=== PATIENT | male | born 1985 | race Caucasian/White ===

== ENCOUNTER 2021-12-07 07:10 | Inpatient (IN) | payer OTHER ==
[~2021-12-07] VITALS: Ht 177.8 cm; Wt 113.5 kg
[~2021-12-07 07:10] MED LIST: Amoxicillin500 MG PO; HYDACE7.5L PO; IBUP800 PO; [UNRECOGNIZED DRUG - OTHER]
[2021-12-07 07:28] LABS: BASOPHILS ABSOLUTE AUTO 0.04 K/mm3 (0.00-0.23); BASOPHILS PERCENT AUTO 0 % (0-2); EOSINOPHILS ABSOLUTE AUTO 0.22 K/mm3 (0.00-0.68); EOSINOPHILS PERCENT AUTO 2 % (0-6); Hematocrit 47.4 % (37.0-53.0); Hemoglobin 15.6 g/dL (13.5-17.5); IMMATURE GRAN ABSOLUTE AUTO 0.06 K/mm3 (0.00-0.10); IMMATURE GRAN PERCENT AUTO 1 % (0-1); LYMPHOCYTES PERCENT AUTO 29 % (21-46); MONOCYTES ABSOLUTE AUTO 1.17 K/mm3 (0.16-1.47); MONOCYTES PERCENT AUTO 9 % (4-13); Mean Corpuscular HGB 27.2 pg (26.0-34.0); Mean Corpuscular HGB Conc 32.9 g/dL (31.5-36.5); Mean Corpuscular Volume 83 fL (80-100); Mean Platelet Volume 11.1 fL (9.1-12.4); NEUTROPHILS ABSOLUTE AUTO 7.91 K/mm3 (1.96-9.15); NEUTROPHILS PERCENT AUTO 59 % (41-73); Platelet Count 313 K/mm3 (150-400); RDW Coefficient Variation 13.2 % (11.7-14.2); RDW Standard Deviation 40.1 fL (35.1-46.3); Red Blood Cell Count 5.73 M/mm3 (4.30-5.90)
[2021-12-07 07:30] LABS: Calcium, Ionized (POC) 1.19 mmol/L (1.10-1.46); Chloride (POC) 105 mmol/L (98-108); Creatinine (POC) 0.8 mg/dL (0.8-1.3); Glucose (ISTAT POC) 132 mg/dL (70-99); Hemoglobin (POC) 16.7 g/dL (13.5-17.5); Potassium (POC) 3.3 mmol/L (3.5-5.5); Sodium (POC) 143 mmol/L (135-148); Total CO2 (POC) 23 mmol/L (21-32)
[2021-12-07 07:48] LABS: Alanine Aminotransfer (ALT/SGP 30 U/L (12-78); Albumin, Blood 3.9 g/dL (3.4-5.0); Albumin/Globulin Ratio 1.2 (0.8-1.8); Alk Phos 79 U/L (50-136); Anion Gap 9 mmol/L (6-16); Aspartate Aminotrans (AST/SGOT 18 U/L (12-37); Bilirubin, Total 0.4 mg/dL (0.1-1.0); Blood Urea Nitrogen 17 mg/dL (8-24); Bun/Creatinine Ratio 20.3 (12.0-20.0); CHOL/HDL RATIO 6.5; CO2, Blood 25 mmol/L (21-32); Calcium, Blood 9.2 mg/dL (8.5-10.1); Chloride, Blood 109 mmol/L (98-108); Cholesterol 188 mg/dL (50-200); Creatinine, Blood 0.84 mg/dL (0.60-1.20); Globulin, Blood 3.3 g/dL (2.2-4.0); Glomerular Filtration Rate 117 (60-); Glucose, Blood 135 mg/dL (70-99); HDL Cholesterol 29 mg/dL (>39); LDL/HDL RATIO 4.6; Low Density Lipoprotein Chol 133 mg/dL (0-110); Potassium, Blood 3.3 mmol/L (3.5-5.5); Sodium, Blood 143 mmol/L (136-145); Total Protein, Blood 7.2 g/dL (6.4-8.2); Triglycerides 130 mg/dL (30-140); Very Low Density Lipoprot Chol 26 mg/dL (6-28)
[2021-12-07 07:51] LABS: Anti-Xa UFH, PHA Monitoring <0.10 IU/mL; International Normalized Ratio 1.22; Prothrombin Time Results 12.6 Sec (9.7-11.5)
--- NOTE | 2021-12-07 09:17 | NUR ---
ADMISSION: Pt arrived to ICU from [facility]
--- NOTE | 2021-12-07 09:57 | NUR ---
PROVIDER PHONE CALL: This RN called Dr Watkins and updated him on pt case for consult.
[2021-12-07 10:35] LABS: Bun/Creatinine Ratio 22.5 (12.0-20.0); Calcium, Blood 8.2 mg/dL (8.5-10.1); Creatinine, Blood 0.67 mg/dL (0.60-1.20); Potassium, Blood 3.7 mmol/L (3.5-5.5)
--- NOTE | 2021-12-07 14:29 | NUR ---
TR BAND REMOVAL: TR band deflated and removed without any rebleeding. Site dressed with occlusive dressing.
--- NOTE | 2021-12-07 15:26 | NUR ---
PHONE CALL: Dr Martinez called and notified that RN canceled heparin order as it was never started.
--- NOTE | 2021-12-07 17:09 | NUR ---
SHIFT SUMMARY/TRANSFER: Pt admitted to ICU from [facility] this morning. He denies any chest pain, shortness of breath, or dizziness. 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 His mother and grandmother were given stent card and personal belongings. Pt ambulated around unit without difficulty. Pt was taken to PCU via hospital bed by RN on cardiac monitoring.
--- NOTE | 2021-12-07 17:34 | NUR ---
ADMIT NOTE TO PCU PATIENT ARRIVED FROM ICU 2 TO PCU 2 AT APPROXIMATELY 1720. PATIENT IS A&OX4, PLEASANT, AND COOPERATIVE W CARE. PATIENT DENIES CP/PRESSURE, SOB, N/V, NUMBNESS/TINGLING. TELE NSR 70S, SPO2>90% RA, VSS. R RADIAL SITE CLEAR WITH NO PRESENCE OF EDEMA, TENDERNESS, REDNESS, BLEEDING, ETC. REVIEWED AND AGREE WITH THE PREVIOUS RN'S ASSESSMENT. LS CLEAR T/O B/L. IV SITE AT LFA PATENT. PATIENT IS INDEPENDENT. REGULAR DIET.
--- NOTE | 2021-12-07 18:26 | NUR ---
I have reveiwed the nursting students documentation and am in agreement.
[2021-12-07 18:55] LABS: U Amphetamine Screen Not Detected; U Barbituate Screen Not Detected; U Benzodiazapine Screen Not Detected; U Buprenorphine Screen Not Detected; U Cannabinoids Screen Not Detected; U Cocaine Screen Not Detected; U Methadone Screen Not Detected; U Methamphetamine Screen Not Detected; U Opiates Screen Not Detected; U Oxycodone Screen Not Detected; U Phencyclidine Screen Not Detected; U Propoxyphene Screen Not Detected
[2021-12-08 04:10] LABS: BASOPHILS ABSOLUTE AUTO 0.03 K/mm3 (0.00-0.23); BASOPHILS PERCENT AUTO 0 % (0-2); EOSINOPHILS ABSOLUTE AUTO 0.09 K/mm3 (0.00-0.68); EOSINOPHILS PERCENT AUTO 1 % (0-6); Hemoglobin 14.6 g/dL (13.5-17.5); IMMATURE GRAN ABSOLUTE AUTO 0.06 K/mm3 (0.00-0.10); IMMATURE GRAN PERCENT AUTO 1 % (0-1); LYMPHOCYTES PERCENT AUTO 17 % (21-46); MONOCYTES ABSOLUTE AUTO 1.12 K/mm3 (0.16-1.47); MONOCYTES PERCENT AUTO 9 % (4-13); Mean Corpuscular HGB 26.8 pg (26.0-34.0); Mean Corpuscular HGB Conc 31.7 g/dL (31.5-36.5); Mean Corpuscular Volume 84 fL (80-100); Mean Platelet Volume 11.2 fL (9.1-12.4); NEUTROPHILS PERCENT AUTO 73 % (41-73); Platelet Count 254 K/mm3 (150-400); RDW Coefficient Variation 13.6 % (11.7-14.2); RDW Standard Deviation 41.6 fL (35.1-46.3); Red Blood Cell Count 5.45 M/mm3 (4.30-5.90)
[2021-12-08 04:42] LABS: Albumin, Blood 3.6 g/dL (3.4-5.0); Albumin/Globulin Ratio 1.2 (0.8-1.8); Bilirubin, Total 0.5 mg/dL (0.1-1.0); Bun/Creatinine Ratio 17.8 (12.0-20.0); Calcium, Blood 8.8 mg/dL (8.5-10.1); Creatinine, Blood 0.62 mg/dL (0.60-1.20); Globulin, Blood 3.1 g/dL (2.2-4.0); Potassium, Blood 3.8 mmol/L (3.5-5.5); Total Protein, Blood 6.7 g/dL (6.4-8.2)
--- NOTE | 2021-12-08 05:40 | NUR ---
SHIFT SUMMARY PT ALERT AND ORIENTED, BUT HAS SLEPT AND RESTED MOST OF THE SHIFT. VSS; SR W/HR IN 70'S - 80'S. 02 >94% ON RA. PT DENIES CHEST PAIN OR CHEST PRESSURE. DENIES SOB. NO TENDERNESS, REDNESS, OR SWELLING NOTED ON R. RADIAL SITE. PT USING RESTROOM INDEPENDENTLY. NO ACUTE CHANGES. BED IN LOWEST POSITION AND CALL LIGHT WITHIN REACH.
--- NOTE | 2021-12-08 09:44 | NUR ---
AM NOTE PATIENT IS PLEASANT, COOPERATIVE W CARE, AND A&OX4. TELE NSR 70S, SPO2>90% RA, VSS. PATIENT DENIES CP/PRESSURE, SOB, N/V, NUMBNESS/TINGLING. PATIENT IS INDEPENDENT. PATIENT DOES C/O OF HEADACHE ASSOSIATED WITH NICOTINE WITHDRAWALS, HOWEVER, DENIES RX INTERVENTIONS. R RADIAL SITE IS INTACT, REMAINS FREE OF HEMATOMA, EDEMA, TENDERNESS, ETC.
[2021-12-08] MEDS ORDERED: ASPI81CH PO (16:38)
[2021-12-08] MEDS ORDERED: ATOR40TA PO (16:39)
[2021-12-08] MEDS ORDERED: METO25ER PO (16:40)
[2021-12-08] MEDS ORDERED: CLOP75 PO (16:41)
--- NOTE | 2021-12-08 18:19 | NUR ---
Discharge Summary Pt alert, oriented X4; anxious, expresses the desire to go home this am. Pt denies pain, chest pain, sob, [place], dizziness/lightheadedness, numb/tingling t/o shift. Tele sinus, run of [facility], notified Dr Barber, no new orders. BP stable. Right radial site c/d/i, arm board in place t/o shift. Spo2 >90% on ra, ls clear t/o. Abd soft nontender, pt reports bm yesterday, normoactive bt t/o. Pt up ind in room, went for walk with executive personal assistant this afternoon. Other vss. No other acute changes noted. at bedside this evening, discussed insurance and medications cost with provider, new orders entered. Reveiwed nursing students documentation and am in agreement. Pt and mother educated on discharge instructions, follow up appointment and prescriptions. Faxed medications to [facility], patient acknowledges the importance of picking medciation up tomorrow am and taking them daily. Educated pt on smoking cessation. Educated pt on wound care and activity restrictions. Pt left room via wheelchair.
== END 2021-12-08 17:56 | disposition home or self-care (01) | DRG 247 ==
LOC: ER 07:10 → PCU 07:17 → ICUE 07:17 → ICUW 07:17 → ICUE 07:39 → PCU 17:15
PROVIDERS: Student in an Organized Health Care Education/Training Program; ADMIT Internal Medicine Cardiovascular Disease
PROC: 027034Z Dilation of Coronary Artery, One Artery with Drug-eluting Intraluminal Device, Percutaneous Approach (ICD-10-PCS; principal; 2021-12-07)
PROC: 4A023N7 Measurement of Cardiac Sampling and Pressure, Left Heart, Percutaneous Approach (ICD-10-PCS; 2021-12-07)
PROC: B2111ZZ Fluoroscopy of Multiple Coronary Arteries using Low Osmolar Contrast (ICD-10-PCS; 2021-12-07)
DX: I21.19 ST elevation (STEMI) myocardial infarction involving other coronary artery of inferior wall (principal); F17.210 Nicotine dependence, cigarettes, uncomplicated; E87.6 Hypokalemia; F15.11 Other stimulant abuse, in remission; Z71.6 Tobacco abuse counseling
CPT/HCPCS: 36415; 71045; 76937; 80047; 80048; 80053; 80061; 83735; 84484; 85014; 85025; 85347; 85520; 85610; 86850; 86900; 86901; 93005; 93010; 93306; 93458; 96365; 96375; 99152; 99153; 99285-25; A9270; C1725; C1769; C1874; C1887; C1894; C9600; J0461; J1644; J2250; J2370; J3010; J3480; J7030; J7040; Q9967

== ENCOUNTER 2022-02-22 13:50 | Emergency (ER) | payer OTHER ==
[~2022-02-22] VITALS: Ht 175.3 cm; Wt 113.4 kg
[~2022-02-22 13:50] MED LIST changes: +ASPI81CH PO; +ATOR40TA PO; +CLOP75 PO; +METO25ER PO
[2022-02-22 14:59] LABS: Albumin, Blood 4.1 g/dL (3.4-5.0); Albumin/Globulin Ratio 1.2 (0.8-1.8); Bilirubin, Total 0.2 mg/dL (0.1-1.0); Bun/Creatinine Ratio 14.9 (12.0-20.0); Calcium, Blood 9.8 mg/dL (8.5-10.1); Creatinine, Blood 0.67 mg/dL (0.60-1.20); Globulin, Blood 3.4 g/dL (2.2-4.0); Potassium, Blood 3.9 mmol/L (3.5-5.5); Total Protein, Blood 7.5 g/dL (6.4-8.2)
[2022-02-22 16:53] LABS: BASOPHILS ABSOLUTE AUTO 0.03 K/mm3 (0.00-0.23); BASOPHILS PERCENT AUTO 0 % (0-2); EOSINOPHILS PERCENT AUTO 1 % (0-6); Hematocrit 45.3 % (37.0-53.0); Hemoglobin 14.9 g/dL (13.5-17.5); IMMATURE GRAN ABSOLUTE AUTO 0.04 K/mm3 (0.00-0.10); IMMATURE GRAN PERCENT AUTO 0 % (0-1); LYMPHOCYTES ABSOLUTE AUTO 2.23 K/mm3 (0.84-5.20); LYMPHOCYTES PERCENT AUTO 18 % (21-46); MONOCYTES ABSOLUTE AUTO 0.52 K/mm3 (0.16-1.47); MONOCYTES PERCENT AUTO 4 % (4-13); Mean Corpuscular HGB 27.2 pg (26.0-34.0); Mean Corpuscular HGB Conc 32.9 g/dL (31.5-36.5); Mean Corpuscular Volume 83 fL (80-100); Mean Platelet Volume 10.5 fL (9.1-12.4); NEUTROPHILS ABSOLUTE AUTO 9.64 K/mm3 (1.96-9.15); NEUTROPHILS PERCENT AUTO 77 % (41-73); Platelet Count 273 K/mm3 (150-400); RDW Standard Deviation 39.3 fL (35.1-46.3); Red Blood Cell Count 5.48 M/mm3 (4.30-5.90); White Blood Cell Count 12.56 K/mm3 (4.00-11.30)
== END 2022-02-22 17:56 | disposition home or self-care (01) ==
LOC: ER 13:50
PROVIDERS: Student in an Organized Health Care Education/Training Program
DX: R42 Dizziness and giddiness (principal); I25.2 Old myocardial infarction; F17.210 Nicotine dependence, cigarettes, uncomplicated; Z79.82 Long term (current) use of aspirin; Z79.899 Other long term (current) drug therapy
CPT/HCPCS: 80053; 83880; 84484; 85025; 93005; 93010

== ENCOUNTER 2023-02-04 13:06 | Emergency (ER) | payer OTHER ==
[~2023-02-04] VITALS: Ht 177.8 cm; Wt 102.1 kg
[2023-02-04 13:47] LABS: BASOPHILS ABSOLUTE AUTO 0.03 K/mm3 (0.00-0.23); BASOPHILS PERCENT AUTO 0 % (0-2); EOSINOPHILS ABSOLUTE AUTO 0.07 K/mm3 (0.00-0.68); EOSINOPHILS PERCENT AUTO 1 % (0-6); Hematocrit 47.1 % (37.0-53.0); Hemoglobin 15.4 g/dL (13.5-17.5); IMMATURE GRAN ABSOLUTE AUTO 0.02 K/mm3 (0.00-0.10); IMMATURE GRAN PERCENT AUTO 0 % (0-1); LYMPHOCYTES ABSOLUTE AUTO 1.54 K/mm3 (0.84-5.20); LYMPHOCYTES PERCENT AUTO 22 % (21-46); MONOCYTES ABSOLUTE AUTO 0.57 K/mm3 (0.16-1.47); MONOCYTES PERCENT AUTO 8 % (4-13); Mean Corpuscular HGB 26.3 pg (26.0-34.0); Mean Corpuscular HGB Conc 32.7 g/dL (31.5-36.5); Mean Corpuscular Volume 81 fL (80-100); Mean Platelet Volume 10.8 fL (9.1-12.4); NEUTROPHILS ABSOLUTE AUTO 4.93 K/mm3 (1.96-9.15); NEUTROPHILS PERCENT AUTO 69 % (41-73); Platelet Count 256 K/mm3 (150-400); RDW Standard Deviation 37.7 fL (35.1-46.3); Red Blood Cell Count 5.85 M/mm3 (4.30-5.90); White Blood Cell Count 7.16 K/mm3 (4.00-11.30)
[2023-02-04 13:56] LABS: International Normalized Ratio 1.25
[2023-02-04 14:02] LABS: Albumin, Blood 4.2 g/dL (3.4-5.0); Albumin/Globulin Ratio 1.2 (0.8-1.8); Bilirubin, Total 0.6 mg/dL (0.1-1.0); Bun/Creatinine Ratio 16.5 (12.0-20.0); Calcium, Blood 9.5 mg/dL (8.5-10.1); Creatinine, Blood 0.79 mg/dL (0.60-1.20); Globulin, Blood 3.6 g/dL (2.2-4.0); Potassium, Blood 3.9 mmol/L (3.5-5.5); Total Protein, Blood 7.8 g/dL (6.4-8.2)
[2023-02-04 16:30] VITALS: BP 127/85
== END 2023-02-04 16:55 | disposition home or self-care (01) ==
LOC: ER 13:06
PROVIDERS: Podiatrist Foot & Ankle Surgery
DX: M54.6 Pain in thoracic spine (principal); R07.89 Other chest pain; I25.2 Old myocardial infarction; F17.210 Nicotine dependence, cigarettes, uncomplicated; Z79.82 Long term (current) use of aspirin; Z79.02 Long term (current) use of antithrombotics/antiplatelets; Z79.899 Other long term (current) drug therapy
CPT/HCPCS: 71046; 80053; 83880; 84484; 85025; 85610; 93005; 93010; 99285-25

== ENCOUNTER 2023-08-04 18:53 | Emergency (ER) | payer OTHER ==
[~2023-08-04] VITALS: Ht 177.8 cm; Wt 86.2 kg
[2023-08-04 19:49] LABS: BASOPHILS ABSOLUTE AUTO 0.04 K/mm3 (0.00-0.23); BASOPHILS PERCENT AUTO 1 % (0-2); EOSINOPHILS ABSOLUTE AUTO 0.11 K/mm3 (0.00-0.68); EOSINOPHILS PERCENT AUTO 1 % (0-6); Hematocrit 43.9 % (37.0-53.0); IMMATURE GRAN ABSOLUTE AUTO 0.01 K/mm3 (0.00-0.10); IMMATURE GRAN PERCENT AUTO 0 % (0-1); LYMPHOCYTES PERCENT AUTO 28 % (21-46); MONOCYTES ABSOLUTE AUTO 0.63 K/mm3 (0.16-1.47); MONOCYTES PERCENT AUTO 8 % (4-13); Mean Corpuscular HGB 26.2 pg (26.0-34.0); Mean Corpuscular HGB Conc 31.9 g/dL (31.5-36.5); Mean Corpuscular Volume 82 fL (80-100); Mean Platelet Volume 10.6 fL (9.1-12.4); NEUTROPHILS ABSOLUTE AUTO 5.12 K/mm3 (1.96-9.15); NEUTROPHILS PERCENT AUTO 62 % (41-73); Platelet Count 246 K/mm3 (150-400); RDW Standard Deviation 38.7 fL (35.1-46.3); Red Blood Cell Count 5.34 M/mm3 (4.30-5.90); White Blood Cell Count 8.21 K/mm3 (4.00-11.30)
[2023-08-04 20:15] LABS: Albumin, Blood 4.3 g/dL (3.4-5.0); Albumin/Globulin Ratio 1.3 (0.8-1.8); Bilirubin, Total 0.3 mg/dL (0.1-1.0); Bun/Creatinine Ratio 19.2 (12.0-20.0); Calcium, Blood 9.6 mg/dL (8.5-10.1); Creatinine, Blood 0.83 mg/dL (0.60-1.20); Globulin, Blood 3.4 g/dL (2.2-4.0); Potassium, Blood 4.1 mmol/L (3.5-5.5); Total Protein, Blood 7.7 g/dL (6.4-8.2)
[2023-08-04 21:02] VITALS: BP 126/78
== END 2023-08-04 22:05 | disposition home or self-care (01) ==
LOC: ER 18:53
PROVIDERS: Emergency Medicine
DX: R07.9 Chest pain, unspecified (principal); M62.838 Other muscle spasm; I25.2 Old myocardial infarction; F17.210 Nicotine dependence, cigarettes, uncomplicated; Z79.82 Long term (current) use of aspirin; Z79.899 Other long term (current) drug therapy; Z95.5 Presence of coronary angioplasty implant and graft
CPT/HCPCS: 71045; 80053; 84484; 85025; 93005; 93010; 99285-25

== ENCOUNTER 2024-09-21 13:17 | Emergency (ER) | payer OTHER ==
[~2024-09-21] VITALS: Ht 177.8 cm; Wt 102.1 kg
[2024-09-21 13:59] LABS: BASOPHILS ABSOLUTE AUTO 0.04 K/mm3 (0.00-0.23); BASOPHILS PERCENT AUTO 1 % (0-2); EOSINOPHILS ABSOLUTE AUTO 0.06 K/mm3 (0.00-0.68); EOSINOPHILS PERCENT AUTO 1 % (0-6); Hematocrit 43.5 % (37.0-53.0); Hemoglobin 13.9 g/dL (13.5-17.5); IMMATURE GRAN ABSOLUTE AUTO 0.02 K/mm3 (0.00-0.10); IMMATURE GRAN PERCENT AUTO 0 % (0-1); LYMPHOCYTES ABSOLUTE AUTO 2.05 K/mm3 (0.84-5.20); LYMPHOCYTES PERCENT AUTO 33 % (21-46); MONOCYTES ABSOLUTE AUTO 0.48 K/mm3 (0.16-1.47); MONOCYTES PERCENT AUTO 8 % (4-13); Mean Corpuscular HGB 26.8 pg (26.0-34.0); Mean Corpuscular Volume 84 fL (80-100); Mean Platelet Volume 10.3 fL (9.1-12.4); NEUTROPHILS ABSOLUTE AUTO 3.61 K/mm3 (1.96-9.15); NEUTROPHILS PERCENT AUTO 58 % (41-73); Platelet Count 235 K/mm3 (150-400); RDW Coefficient Variation 12.7 % (11.7-14.2); RDW Standard Deviation 38.6 fL (35.1-46.3); Red Blood Cell Count 5.19 M/mm3 (4.30-5.90); White Blood Cell Count 6.26 K/mm3 (4.00-11.30)
[2024-09-21 14:22] LABS: Albumin, Blood 4.2 g/dL (3.4-5.0); Albumin/Globulin Ratio 1.2 (0.8-1.8); Bilirubin, Total 0.6 mg/dL (0.1-1.0); Bun/Creatinine Ratio 16.5 (12.0-20.0); Creatinine, Blood 0.85 mg/dL (0.60-1.20); Globulin, Blood 3.5 g/dL (2.2-4.0); Potassium, Blood 3.8 mmol/L (3.5-5.5); Total Protein, Blood 7.7 g/dL (6.4-8.2)
[2024-09-21 17:00] VITALS: BP 123/78
== END 2024-09-21 17:15 | disposition home or self-care (01) ==
LOC: ER 13:17
PROVIDERS: Student in an Organized Health Care Education/Training Program
DX: R07.9 Chest pain, unspecified (principal); F17.210 Nicotine dependence, cigarettes, uncomplicated; E78.5 Hyperlipidemia, unspecified; Z79.82 Long term (current) use of aspirin; Z79.02 Long term (current) use of antithrombotics/antiplatelets; Z79.899 Other long term (current) drug therapy
CPT/HCPCS: 71046; 80053; 84484; 85025; 93005; 93010; 99285-25

== ENCOUNTER 2025-06-25 10:11 | Day surgery (SDC) | payer OTHER ==
[~2025-06-25] VITALS: Ht 177.8 cm; Wt 105.0 kg
[2025-06-25 10:33] VITALS: BP 134/89
[2025-06-25] MEDS ORDERED: ESCITALOPRAM OX10 M1 PO (10:33)
[2025-06-25] MEDS ORDERED: Heparin Sodium 1000 Units/ML 10ML MDV ONE ×2 (11:14→12:27)
[2025-06-25] MEDS ORDERED: NS 1,000 ML IV ONE ×2 (11:14→11:20)
[2025-06-25] MEDS ORDERED: Verapamil HCL 2.5 MG/ML 2ML Injection ONE (11:14)
[2025-06-25] MEDS ORDERED: NS 250 ML IV ONE (11:14)
[2025-06-25] MEDS ORDERED: Nitroglycerin 2 MG/20 ML BTL ONE (11:15)
[2025-06-25] MEDS ORDERED: FentaNYL Citrate 50 MCG/ML 2 ML Injection ONE ×2 (11:20→12:37)
[2025-06-25] MEDS ORDERED: Midazolam HCl 1MG / ML 2ML Vial ONE ×2 (11:20→12:37)
[2025-06-25 13:11] VITALS: BP 109/91
[2025-06-25 14:15] VITALS: BP 131/78
[2025-06-25 15:00] VITALS: BP 125/71
--- NOTE | 2025-06-25 15:03 | NUR ---
Removed 2 ml air from TR band, site immediately started to bleed, reinflated TR band with 2 ml of air, bleeding stopped.
[2025-06-25 15:30] VITALS: BP 116/83
--- NOTE | 2025-06-25 17:00 | NUR ---
Discharge. TR band fully deflated at 1630. Site intact, no bleeding/swelling or hematoma noted after deflation. Gauze dot dressing applied. Pt verbalized understanding of all discharge instructions and follow up appointment. All personal belongings sent home with patient. Pt walked out of unit independently, declined wheelchair.
== END 2025-06-25 23:00 | disposition home or self-care (01) ==
LOC: MHTC 10:11
DX: I25.10 Atherosclerotic heart disease of native coronary artery without angina pectoris (principal); I77.89 Other specified disorders of arteries and arterioles; I25.2 Old myocardial infarction; Z95.5 Presence of coronary angioplasty implant and graft; Z79.02 Long term (current) use of antithrombotics/antiplatelets; Z79.899 Other long term (current) drug therapy
CPT/HCPCS: 76937; 85347; 93458; 93571; 93572; 99152; 99153; A9270; C1769; C1887; C1894; J1644; J2250; J3010; J7030; J7050; Q9967